=== PATIENT | female | born 1985 | race Caucasian/White ===

== ENCOUNTER 2020-11-14 04:37 | Emergency (ER) | payer BC ==
[2020-11-14] MEDS ORDERED: Sodium Chloride 0.9% 10 ML Syringe FLUSH PRN (05:31)
[2020-11-14] MEDS ORDERED: Prochlorperazine 10 MG in Sodium Chloride 0.9% 50 ML IV ONE (05:31)
[2020-11-14] MEDS ORDERED: Ketorolac 15 MG/ML SDV IVPUSH ONE (05:31)
--- NOTE | 2020-11-14 05:40 | EDM.PDOC ---
ED HPI GENERAL MEDICAL PROBLEM - General Chief Complaint: Abdominal Pain Stated Complaint: RT SIDE ABDOMINAL PAIN Time Seen by Provider: 11/14/20 05:20 Source of Information: Reports: Patient History Limitations: Reports: No Limitations - History of Present Illness INITIAL COMMENTS - FREE TEXT/NARRATIVE: Patient arrived to ED via private vehicle Onset of symptoms was midnight Describes pain localized to right upper quadrant of abdomen Pain has been constant and continuous since onset, severity rated 7/10 Associated nausea with 2 episodes of vomiting Endorses anorexia, diarrhea and low-grade fever since 11/10/2020 Has not taken anything for pain tonight Reports known history of gallstones, diagnosed about 5 years ago Has had intermittent occurrence of "gallbladder episodes" These manifest as pain in right\\flank which radiates around to her abdomen Associated nausea with occasional vomiting Episodes of been occurring with increasing frequency recently She is scheduled for consultation with surgeon 11/18/2020 to discuss cholecystectomy Right Flank Pain Score (Numeric/FACES): 7 - Related Data Allergies Allergy/AdvReac Type Severity Reaction Status Date / Time metformin Allergy Hives Verified 11/14/20 04:46 Home Meds: Home Meds Folic Acid 1 mg PO DAILY 11/14/20 [History] L.acidoph,Paracasei, B.lactis [Probiotic] 1 each PO DAILY 11/14/20 [History] Omeprazole 20 mg PO DAILY 11/14/20 [History] Prochlorperazine Maleate 10 mg PO Q6H PRN #12 tablet 11/14/20 [Rx] Past Medical History Gastrointestinal History: Reports: Cholelithiasis Genitourinary History: Reports: Renal Calculus [employer] History: Reports: Musculoskeletal History: Reports: Fracture Endocrine/Metabolic History: Reports: Hypothyroidism, Obesity/BMI 30+ - Past Surgical History Female Surgical History: Reports: Section Musculoskeletal Surgical History: Reports: ORIF Social & Family History - Tobacco Use Tobacco Use Status *Q: Never Tobacco User - Recreational Drug Use Recreational Drug Use: No ED ROS GENERAL - Review of Systems Review Of Systems: See Below Free Text/Narrative/Comment: Constitutional - fever; anorexia Eyes - no eye pain; no visual disturbance ENT - no rhinorrhea; no congestion; no epistaxis Cardiovascular - no chest pain Respiratory - no shortness of breath; no cough Gastrointestinal - abdominal pain; nausea; vomiting; diarrhea Genitourinary - no dysuria; LNMP 3 weeks ago Musculoskeletal - no neck pain; no back pain; no extremity injury Neurological - no headache; no speech disturbance; no weakness ED EXAM, GI/ABD - Physical Exam Exam: See Below Text/Narrative:: Constitutional - awake; alert; mild pain distress Head - no facial swelling or weakness Eyes - conjunctiva normal ENT - no nasal deformity; no epistaxis; normal phonation Neck - no swelling Respiratory - normal respiratory effort; no crackles or wheezing; no stridor Cardiovascular - regular rhythm; normal rate; S1; S2; grade 1/6 systolic murmur GI/Abdomen - normal bowel sounds; soft; mild tenderness epigastric and left upper quadrant; mild to moderate tenderness right upper quadrant; no rebound/guarding; no mass Musculoskeletal - grossly normal strength and motion; no swelling or deformity Skin - warm; dry Neurologic - normal speech; no weakness; gait intact Psychiatric - normal mood and affect; memory and attention normal Course - Vital Signs Text/Narrative:: . Considered etiologies included: Abdominal pain, nausea, vomiting, biliary colic, cholecystitis, pancreatitis, gastritis, appendicitis, flank pain Symptoms and examination were discussed Investigations were initiated Empiric treatment was provided with ketorolac and prochlorperazine At reevaluation pain severity had improved to 3/10, and nausea resolved Consideration for ED imaging vs deferral with clinical observation was discussed Patient indicated and she just wanted to go home and go to bed She tolerated trial of oral fluid and food intake without recurrence of nausea or gastrointestinal distress A limited quantity of prochlorperazine was prescribed for symptomatic treatment Patient was felt to be stable for outpatient follow-up Return precautions were provided Last Recorded V/S: Last Vital Signs Temp 36.1 C 11/14/20 04:46 Pulse 70 11/14/20 07:53 Resp 16 11/14/20 04:46 BP 144/80 H 11/14/20 07:53 Pulse Ox 100 11/14/20 07:53 - Orders/Labs/Meds Orders: Active Orders 24 hr Category Date Time Status Peripheral IV Insertion Adult [OM.PC] Stat Oth 11/14/20 05:30 Ordered Labs: Laboratory Tests 11/14/20 11/14/20 11/14/20 Range/Units 05:34 05:34 07:29 WBC 6.96 (3.98-10.04) K/mm3 RBC 4.88 (3.98-5.22) M/mm3 Hgb 12.7 (11.2-15.7) gm/dl Hct 39.6 (34.1-44.9) % MCV 81.1 (79.4-94.8) fl MCH 26.0 (25.6-32.2) pg MCHC 32.1 L (32.2-35.5) g/dl RDW Std Deviation 43.5 (36.4-46.3) fL Plt Count 349 (182-369) K/mm3 MPV 10.2 (9.4-12.3) fl Neut % (Auto) 60.6 (34.0-71.1) % Lymph % (Auto) 21.0 (19.3-51.7) % [place] % (Auto) 12.8 H (4.7-12.5) % Eos % (Auto) 1.3 (0.7-5.8) Baso % (Auto) 0.4 (0.1-1.2) % Neut # (Auto) 4.22 (1.56-6.13) K/mm3 Lymph # (Auto) 1.46 (1.18-3.74) K/mm3 [place] # (Auto) 0.89 H (0.24-0.36) K/mm3 Eos # (Auto) 0.09 (0.04-0.36) K/mm3 Baso # (Auto) 0.03 (0.01-0.08) K/mm3 Manual Slide Review Normal smear Sodium 138 (136-145) mEq/L Potassium 3.8 (3.5-5.1) mEq/L Chloride 105 (98-107) mEq/L Carbon Dioxide 25 (21-32) mEq/L Anion Gap 11.8 (5-15) BUN 10 (7-18) mg/dL Creatinine 0.8 (0.55-1.02) mg/dL Est Cr Clr Drug Dosing 84.76 mL/min Estimated GFR (MDRD) > 60 (>60) mL/min BUN/Creatinine Ratio 12.5 L (14-18) Glucose 122 H (74-106) mg/dL Calcium 8.3 L (8.5-10.1) mg/dL Total Bilirubin 0.2 (0.2-1.0) mg/dL AST 161 H (15-37) U/L ALT 288 H (14-59) U/L Alkaline Phosphatase 242 H (46-116) U/L Total Protein 7.3 (6.4-8.2) g/dl Albumin 3.0 L (3.4-5.0) g/dl Globulin 4.3 gm/dL Albumin/Globulin Ratio 0.7 L (1-2) Lipase 122 (73-393) U/L Urine Color Yellow (Yellow) Urine Appearance Clear (Clear) Urine pH 6.5 (5.0-8.0) Ur Specific [place] 1.025 (1.005-1.030) Urine Protein Trace H (Negative) Urine Glucose (UA) Negative (Negative) Urine Ketones Negative (Negative) Urine Occult Blood Negative (Negative) Urine Nitrite Negative (Negative) Urine Bilirubin Negative (Negative) Urine Urobilinogen 0.2 (0.2-1.0) Ur Leukocyte Esterase Negative (Negative) Urine RBC 0-5 (0-5) /hpf Urine WBC 0-5 (0-5) /hpf Ur Epithelial Cells 0-5 (0-5) /hpf Urine Bacteria Few (FEW) /hpf Urine Mucus Moderate H (FEW) /hpf Urine HCG, Qual (NEGATIVE) 11/14/20 Range/Units 07:29 WBC (3.98-10.04) K/mm3 RBC (3.98-5.22) M/mm3 Hgb (11.2-15.7) gm/dl Hct (34.1-44.9) % MCV (79.4-94.8) fl MCH (25.6-32.2) pg MCHC (32.2-35.5) g/dl RDW Std Deviation (36.4-46.3) fL Plt Count (182-369) K/mm3 MPV (9.4-12.3) fl Neut % (Auto) (34.0-71.1) % Lymph % (Auto) (19.3-51.7) % [place] % (Auto) (4.7-12.5) % Eos % (Auto) (0.7-5.8) Baso % (Auto) (0.1-1.2) % Neut # (Auto) (1.56-6.13) K/mm3 Lymph # (Auto) (1.18-3.74) K/mm3 [place] # (Auto) (0.24-0.36) K/mm3 Eos # (Auto) (0.04-0.36) K/mm3 Baso # (Auto) (0.01-0.08) K/mm3 Manual Slide Review Sodium (136-145) mEq/L Potassium (3.5-5.1) mEq/L Chloride (98-107) mEq/L Carbon Dioxide (21-32) mEq/L Anion Gap (5-15) BUN (7-18) mg/dL Creatinine (0.55-1.02) mg/dL Est Cr Clr Drug Dosing mL/min Estimated GFR (MDRD) (>60) mL/min BUN/Creatinine Ratio (14-18) Glucose (74-106) mg/dL Calcium (8.5-10.1) mg/dL Total Bilirubin (0.2-1.0) mg/dL AST (15-37) U/L ALT (14-59) U/L Alkaline Phosphatase (46-116) U/L Total Protein (6.4-8.2) g/dl Albumin (3.4-5.0) g/dl Globulin gm/dL Albumin/Globulin Ratio (1-2) Lipase (73-393) U/L Urine Color (Yellow) Urine Appearance (Clear) Urine pH (5.0-8.0) Ur Specific [place] (1.005-1.030) Urine Protein (Negative) Urine Glucose (UA) (Negative) Urine Ketones (Negative) Urine Occult Blood (Negative) Urine Nitrite (Negative) Urine Bilirubin (Negative) Urine Urobilinogen (0.2-1.0) Ur Leukocyte Esterase (Negative) Urine RBC (0-5) /hpf Urine WBC (0-5) /hpf Ur Epithelial Cells (0-5) /hpf Urine Bacteria (FEW) /hpf Urine Mucus (FEW) /hpf Urine HCG, Qual Negative (NEGATIVE) Meds: Medications Discontinued Medications Generic Name Dose Route Start Last Admin Trade Name Freq PRN Reason Stop Dose Admin Prochlorperazine Edisylate 10 52 mls @ 150 mls/hr 11/14/20 05:31 11/14/20 05:49 mg/ Sodium Chloride IV 11/14/20 05:51 150 mls/hr ONETIME ONE Administration Ketorolac Tromethamine 15 mg 11/14/20 05:31 11/14/20 05:45 Ketorolac 15 Mg/Ml Sdv IVPUSH 11/14/20 05:32 15 mg ONETIME ONE Administration Sodium Chloride 10 ml 11/14/20 05:31 11/14/20 05:49 Sodium Chloride 0.9% 10 Ml Syringe FLUSH 10 ml ASDIRECTED PRN Administration Keep Vein Open Departure - Departure Time of Disposition: 07:39 Disposition: Home, Self-Care 01 Condition: Good Clinical Impression: Abdominal pain, RUQ (right upper quadrant), History of cholelithiasis - Discharge Information Prescriptions: Prochlorperazine Maleate 10 mg PO Q6H PRN #12 tablet PRN Reason: Nausea or GI distress Instructions: Biliary Colic, Adult Referrals: Viji Arellano NP [Primary Care Provider] - Forms: ED Department Discharge Additional Instructions: Return if condition worsens May resume general activity and light diet as tolerated Continue usual medications May take IBUPROFEN 600 mg every 6 hours as needed for pain May use PROCHLORPERAZINE as prescribed, as needed for pain or gastrointestinal distress Follow-up with primary care provider is recommended Follow-up with surgeon on , 11/18/2020 as scheduled Sepsis Event Note (ED) - Evaluation Sepsis Screening Result: No Definite Risk - My Orders Last 24 Hours: My Active Orders 11/14/20 05:30 Peripheral IV Insertion Adult [OM.PC] Stat - Assessment/Plan Last 24 Hours: My Active Orders 11/14/20 05:30 Peripheral IV Insertion Adult [OM.PC] Stat
== END 2020-11-14 07:55 | disposition home or self-care (01) ==
LOC: JD.ED 04:37
DX: R10.11 Right upper quadrant pain (principal); E66.9 Obesity, unspecified; Z68.43 Body mass index [BMI] 50.0-59.9, adult; Z88.8 Allergy status to other drugs, medicaments and biological substances; Z79.899 Other long term (current) drug therapy
CPT/HCPCS: 36415; 80053; 81001; 81025; 83690; 85025; 96365; 96375; 99284; J0780; J1885